=== PATIENT | male | born 1945 | race Caucasian/White ===

== ENCOUNTER 2018-07-06 09:20 | Emergency (ER) | payer BC ==
[2005-02-19 12:46] VITALS: BP 128/72
[~2018-07-06] VITALS: Ht 177.8 cm; Wt 80.5 kg
[~2018-07-06 09:20] MED LIST: APRESOLINE 25MG25 MG PO; ASPIRIN 32325 MG/TAB PO; ASPIRIN E.C. 8181 MG PO; BENAZEPRIL20 MG PO; BENAZEPRIL40 MG PO; BENICAR HCT 12.1 TA1 PO; CIPRO 250MG TA250 MG PO; COUMADIN 3MG3 MG/TAB PO; COZAAR 25MG25 MG/TAB PO; FLOMAX 0.40.4 MG/CAP PO; FLOMAX0.4 MG PO; HCTZ 25MG25 MG PO; LEVOTHYROXINE0.05 MG PO; LEVOXYL0.075 MG PO; LEVOXYL0.175 MG PO; LIPITOR 40MG TA40 MG PO; LOPRESSOR 550 MG/TAB PO; METOPROLOL TART25 MG PO; MULTIPLE VITAMI1 CAP PO; MULTIPLE VITAMI1 TAB PO; NORVASC 5MG5 MG/TAB PO; OMEPRAZOLE40 MG PO; PACERONE200 MG PO; PROTONIX 40MG T40 MG PO; [UNRECOGNIZED DRUG - OTHER] PO
[2018-07-06 09:24] VITALS: TEMP 97.5
[2018-07-06 09:45] LABS: BASO % 0.6 % (0.0-2.0); EOS % 0.6 % (0-4.0); GRAN # 5.4 (1.4-6.5); GRAN % 78.1 % (42.2-75.2); HEMATOCRIT 40.6 % (42.0-52.0); HEMOGLOBIN 13.8 g/dl (13.5-18.0); LYMPH # 0.8 (1.2-3.4); LYMPH % 11.1 % (20.0-51.0); MEAN CELL VOLUME 90 fl (80.0-100.0); MEAN CORPUSCULAR HEMOGLOBIN 31 pg (27.0-31.0); MEAN CORPUSCULAR HGB CONC 34 g/dl (33.0-37.0); MEAN PLATELET VOLUME 9.8 fl (7.4-10.4); MONO # 0.6 (0.1-0.6); MONO % 9.2 % (1.7-9.3); PLATELET COUNT 265 K/mm3 (130-400); REDCELL DISTRIBUTION WIDTH-CV 13.9 % (11.5-14.5)
[2018-07-06 09:50] LABS: INR 1.1 (0.8-3.0); PROTHROMBIN TIME 12.4 SECONDS (9.7-12.8)
[2018-07-06 09:54] LABS: ALANINE AMINOTRANSFERASE 27 U/L (21-72); ALBUMIN 3.8 gm/dL (3.5-5.0); ALKALINE PHOSPHATASE 68 U/L (50-136); ANION GAP 11 mmol/L (7-16); AST,SGOT 21 U/L (15-37); BILIRUBIN,TOTAL 1.1 mg/dL (0.0-1.0); BLOOD UREA NITROGEN 20 mg/dL (9-20); CALCIUM 8.7 mg/dL (8.4-10.2); CARBON DIOXIDE 24 mmol/L (22-30); CHLORIDE 103 mmol/L (98-107); CREATININE, serum 1.14 mg/dL (0.66-1.25); GLUCOSE 90 mg/dL (74-106); POTASSIUM 3.6 mmol/L (3.4-5.0); SODIUM 138 mmol/L (137-145); TOTAL PROTEIN 6.5 gm/dL (6.4-8.2)
[2018-07-06 10:08] LABS: TROPONIN-I < 0.012 ng/mL (0.000-0.034)
[2018-07-06] MEDS ORDERED: FLOMAX 0.40.4 MG/CAP PO (10:49)
[2018-07-06] MEDS ORDERED: NORVASC 10MG10 MG PO (10:50)
[2018-07-06] MEDS ORDERED: HYZAAR 25 MG-101 TAB PO (10:52)
[2018-07-06 13:21] VITALS: BP 104/65; PULSE 50
== END 2018-07-06 13:22 | disposition home or self-care (01) ==
LOC: COL.ER 09:20
PROVIDERS: Emergency Medicine
DX: R55 Syncope and collapse (principal); R00.1 Bradycardia, unspecified; I48.91 Unspecified atrial fibrillation; I10 Essential (primary) hypertension; E03.9 Hypothyroidism, unspecified; E78.5 Hyperlipidemia, unspecified; Z85.89 Personal history of malignant neoplasm of other organs and systems; Z85.51 Personal history of malignant neoplasm of bladder; Z98.890 Other specified postprocedural states; Z98.52 Vasectomy status; Z79.82 Long term (current) use of aspirin
CPT/HCPCS: J7030

== ENCOUNTER → 2018-07-10 | Outpatient (CLI) | payer BC, MEDICARE ==
[~2018-07-10] MED LIST changes: +HYZAAR 25 MG-101 TAB PO; +NORVASC 10MG10 MG PO
== END ==
LOC: COL.VAS 07:46
DX: I65.23 Occlusion and stenosis of bilateral carotid arteries (principal); R42 Dizziness and giddiness; Z92.3 Personal history of irradiation

== ENCOUNTER 2018-11-07 10:27 | Day surgery (SDC) | payer BC ==
[2005-02-19 12:46] VITALS: BP 128/72
[~2018-11-07] VITALS: Ht 177.8 cm; Wt 70.7 kg
[2018-11-07 11:16] VITALS: BP 109/67; PULSE 61; TEMP 97.8
[2018-11-07 11:18] LABS: ALBUMIN 3.7 gm/dL (3.5-5.0); CALCIUM 9.1 mg/dL (8.4-10.2); CREATININE, serum 0.83 mg/dL (0.66-1.25); POTASSIUM 3.3 mmol/L (3.4-5.0)
[2018-11-07] MEDS ORDERED: KLOR-CON M1010 MEQ PO (12:19)
[2018-11-07 13:12] VITALS: BP 135/71; PULSE 56
--- NOTE | 2018-11-07 13:12 | NUR ---
Patient returns to room 1 per cart from surgery and is awake and alert. Temp 97.3 and room air sats 95%. Expectorating bloody sputum. Denies pain or nausea at present. Spouse in room. Abdominal binder in place and dressing dry on the abdomen. IV fluids infusing. Siderails up x2 and call light in reach.
[2018-11-07 13:27] VITALS: BP 156/71; PULSE 55
--- NOTE | 2018-11-07 13:27 | NUR ---
Sitting up on cart and continues to expectorate blood tinged sputum.
[2018-11-07] MEDS ORDERED: HYCET SOLN PO ×2 (13:33→13:51)
[2018-11-07 13:42] VITALS: BP 147/73; PULSE 54
--- NOTE | 2018-11-07 13:42 | NUR ---
Was medicated at 1340 with Saffell elixir 5mg for complaints of jaw and ear pain. Able to drink water without nausea or vomiting.
[2018-11-07 13:57] VITALS: BP 131/65; PULSE 55
--- NOTE | 2018-11-07 13:57 | NUR ---
Room air sats 97%. Less bloody sputum.
[2018-11-07 14:12] VITALS: BP 143/61; PULSE 53
--- NOTE | 2018-11-07 14:12 | NUR ---
Room air sats 98%. States that the pain medication is helping.
--- NOTE | 2018-11-07 14:35 | NUR ---
IV discontinued and given dismissal instructions for Peg tube cares and feedings. Patient was provided supplies to begin tube feedings tonight. Reviewed proper technique and patient and spouse both verbalize understanding the bolus feedings. Spouse states that she remembers from the prior peg tube feeding. Patient dismissed to home per private vehicle driven by spouse. Taken to the front door per wheelchair and assisted into vehicle.
--- NOTE | 2018-11-07 15:09 | NUR ---
composition siding worker met with patient and spouse to assist with post hospital care for the feeding tube. Patient had a feeding tube previously. Worker provided durable medical equipment options and patient/spouse chose [facility]. Choice form signed and worker made a referral to [facility]. 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
== END 2018-11-07 14:35 | disposition home or self-care (01) ==
LOC: SDCO 10:27
PROVIDERS: Surgery
DX: C10.9 Malignant neoplasm of oropharynx, unspecified (principal); C79.89 Secondary malignant neoplasm of other specified sites; R13.12 Dysphagia, oropharyngeal phase; E43 Unspecified severe protein-calorie malnutrition; R63.4 Abnormal weight loss; Z79.899 Other long term (current) drug therapy; Z79.82 Long term (current) use of aspirin; I10 Essential (primary) hypertension; I48.91 Unspecified atrial fibrillation; K21.0 Gastro-esophageal reflux disease with esophagitis; E03.9 Hypothyroidism, unspecified; N40.0 Benign prostatic hyperplasia without lower urinary tract symptoms; Z97.0 Presence of artificial eye; Z80.3 Family history of malignant neoplasm of breast; Z80.1 Family history of malignant neoplasm of trachea, bronchus and lung; Z80.8 Family history of malignant neoplasm of other organs or systems; Z86.718 Personal history of other venous thrombosis and embolism; Z85.51 Personal history of malignant neoplasm of bladder; E78.00 Pure hypercholesterolemia, unspecified; I95.1 Orthostatic hypotension; Z92.3 Personal history of irradiation; Z92.21 Personal history of antineoplastic chemotherapy
CPT/HCPCS: J2250; J2704; J3010; J7120

== ENCOUNTER 2019-01-09 11:17 | Day surgery (SDC) | payer BC, MEDICARE ==
[2005-02-19 12:46] VITALS: BP 128/72
[~2019-01-09] VITALS: Ht 177.8 cm; Wt 76.4 kg
[~2019-01-09 11:17] MED LIST changes: +CARDURA 1MG1 MG PO; +HYCET SOLN PO; +KLOR-CON M1010 MEQ PO; -LEVOXYL0.175 MG PO; +LEVOXYL0.2 MG PO
[2019-01-09] MEDS ORDERED: SYNTHROID 0.0.025 MG PO (11:35)
[2019-01-09 12:03] VITALS: BP 113/72; PULSE 64; TEMP 97
--- NOTE | 2019-01-09 12:17 | NUR ---
Dr Miles into see patient and to preform procedure at the bedside.
--- NOTE | 2019-01-09 12:30 | NUR ---
Procedure complete at this time. Patient tolerated well, vital signs stable.
--- NOTE | 2019-01-09 12:50 | NUR ---
Dismissal instructions gone over with patient and patient's spouse. Both verbalized understanding and all questions answered.
--- NOTE | 2019-01-09 12:55 | NUR ---
Patient and spouse discharged to home thanking staff for services.
[2019-01-09 14:09] VITALS: BP 131/75; PULSE 60
== END 2019-01-09 12:55 | disposition home or self-care (01) ==
LOC: SDCO 11:17
DX: Z43.1 Encounter for attention to gastrostomy (principal); R13.12 Dysphagia, oropharyngeal phase; C44.92 Squamous cell carcinoma of skin, unspecified; I10 Essential (primary) hypertension; K21.9 Gastro-esophageal reflux disease without esophagitis; E78.00 Pure hypercholesterolemia, unspecified; Z86.718 Personal history of other venous thrombosis and embolism
CPT/HCPCS: 32168

== ENCOUNTER → 2019-01-15 | Outpatient (CLI) | payer BC, MEDICARE ==
[~2019-01-15] MED LIST changes: +SYNTHROID 0.0.025 MG PO
== END ==
LOC: ZCOL.LAB 15:00
DX: J39.2 Other diseases of pharynx (principal)

== ENCOUNTER → 2019-05-06 | Outpatient (CLI) | payer BC | LOC: COL.RAD 12:12 | DX: Z01.812 Encounter for preprocedural laboratory examination (principal); J01.00 Acute maxillary sinusitis, unspecified; G31.1 Senile degeneration of brain, not elsewhere classified; I67.82 Cerebral ischemia | CPT/HCPCS: A9585 ==

== ENCOUNTER 2019-05-22 06:32 | Day surgery (SDC) | payer BC ==
[2005-02-19 12:46] VITALS: BP 128/72
[~2019-05-22] VITALS: Ht 177.8 cm; Wt 70.0 kg
[2019-05-22 07:15] VITALS: BP 158/87; PULSE 62; TEMP 98.4
[2019-05-22 08:20] VITALS: BP 149/84; PULSE 58
--- NOTE | 2019-05-22 08:20 | NUR ---
Procedure complete, denies any discomfort. Vital signs stable. Discharge instructions reviewed all questions answered. Leonides-tamayo button extentions in hand. States aware on how to use. to drive patient home.
--- NOTE | 2019-05-22 08:25 | NUR ---
Patient ambulated to lobby without difficulty. To be driven home by .
== END 2019-05-22 08:25 | disposition home or self-care (01) ==
LOC: SDCO 06:32
DX: T85.848A Pain due to other internal prosthetic devices, implants and grafts, initial encounter (principal); Z86.711 Personal history of pulmonary embolism; Z92.3 Personal history of irradiation; Z87.891 Personal history of nicotine dependence; Z88.1 Allergy status to other antibiotic agents
CPT/HCPCS: 26580; B4087